=== PATIENT | male | born 1985 | race Hispanic/Latino ===

== ENCOUNTER 2018-07-31 06:00 | Emergency (ER) | payer MEDICARE ==
[2018-07-31] MEDS ORDERED: FAMOTIDINE 20MG TAB 20 MG TAB ONE (06:22)
[2018-07-31] MEDS ORDERED: DiphenhydrAMINE HCL 50 MG/ML VIAL ONE (06:23)
[2018-07-31] MEDS ORDERED: PREDNISONE 20 MG TABLET ONE (06:23)
[2018-07-31] MEDS ORDERED: ALBUTEROL SULFATE 0.083% 2.5 MG/3 ML INH IH ONE (06:28)
== END 2018-07-31 07:19 | disposition home or self-care (01) ==
LOC: EDH 06:00
DX: T78.40XA Allergy, unspecified, initial encounter (principal); L50.9 Urticaria, unspecified; J45.909 Unspecified asthma, uncomplicated; E11.9 Type 2 diabetes mellitus without complications; Z88.0 Allergy status to penicillin; Z88.8 Allergy status to other drugs, medicaments and biological substances; Z98.890 Other specified postprocedural states; X58.XXXA Exposure to other specified factors, initial encounter
CPT/HCPCS: 94640; 96372; 99283; J1200

== ENCOUNTER → 2023-12-01 | Outpatient (CLI) | payer MEDICARE ==
[~2023-12-01] MED LIST: LIDOCAINE HCL 4% LTA SOL 4 ML VIAL TP ONE
== END | disposition home or self-care (01) ==
LOC: WHH 08:52
PROVIDERS: ATTEND Family Medicine
DX: L89.320 Pressure ulcer of left buttock, unstageable (principal); K21.9 Gastro-esophageal reflux disease without esophagitis; E03.9 Hypothyroidism, unspecified; Q90.9 Down syndrome, unspecified; F03.90 Unspecified dementia, unspecified severity, without behavioral disturbance, psychotic disturbance, mood disturbance, and anxiety
CPT/HCPCS: 11042; 11045; A6213; A4450